=== PATIENT | female | born 1935 | race Hispanic/Latino ===

== ENCOUNTER 2020-06-30 13:29 | Inpatient (IN) | payer MEDICARE ==
[~2020-06-30] VITALS: Ht 162.6 cm; Wt 59.0 kg
[2020-06-30] MEDS ORDERED: SODIUM CHLORIDE 0.9% 1000ML 1,000 ML IV STA ×2 (14:12→14:29)
[2020-06-30] MEDS ORDERED: CEFTRIAXONE SOD 1 GM VIAL IV ONE (14:30)
[2020-06-30] MEDS ORDERED: CEFTRIAXONE SOD 1 GM VIAL ONE (14:50)
[2020-06-30] MEDS ORDERED: SODIUM CHLORIDE 0.9% 1000ML 1,000 ML ONE (14:50)
[2020-06-30] MEDS ORDERED: CEFTRIAXONE SOD 1 GM 50 ML IV ONE (15:00)
[2020-06-30] MEDS ORDERED: ONDANSETRON HCL INJ 2MG/ML 2ML 2 MG/ML VIAL IV PRN (15:30)
[2020-06-30] MEDS ORDERED: ZOLPIDEM TARTRATE 5 MG TAB PO PRN (15:30)
[2020-06-30] MEDS: DEXTROSE 5%/0.45% SOD CHL 1,000 ML IV SCH (17:15)
[2020-06-30 17:27] VITALS: BP 100/43
[2020-06-30 17:36] VITALS: BP 100/43
[2020-06-30] MEDS ORDERED: LOSARTAN POTASS50 MG PO (17:39)
[2020-06-30] MEDS ORDERED: ASPIRIN81 MG PO (17:39)
[2020-06-30] MEDS ORDERED: FUROSEMIDE20 MG PO (17:39)
[2020-06-30] MEDS ORDERED: LEVOTHYROXINE88 MCG PO (17:39)
[2020-06-30 17:44] VITALS: BP 100/43
[2020-06-30 20:00] VITALS: BP 92/41
[2020-06-30 20:13] VITALS: BP 92/41
[2020-06-30] MEDS: PANTOPRAZOLE 40 MG 10ML VIAL IV SCH ×2 (20:40→21:36)
[2020-06-30 23:28] VITALS: BP 82/38
[2020-07-01] VITALS (9 sets, daily range): BP systolic 78–177; BP diastolic 34–87
[2020-07-01] MEDS ORDERED: SODIUM CHLORIDE 0.9% 500ML 500 ML ONE ×2 (00:07→00:34)
[2020-07-01] MEDS ORDERED: SODIUM CHLORIDE 0.9% 500ML 500 ML IV ONE ×3 (00:30→06:30)
[2020-07-01] MEDS: DEXTROSE 5%/0.45% SOD CHL 1,000 ML IV SCH ×2 (01:20→09:54)
[2020-07-01] MEDS ORDERED: SODIUM CHLORIDE 0.9% 1000ML 1,000 ML ONE (06:40)
[2020-07-01 07:44] LABS: BASOPHILS # (AUTO) 0.1 (0.0-0.1); BASOPHILS % 0.8 % (0.0-1.0); EOSINOPHILS % 0.5 % (0.0-6.0); LYMPHOCYTES # (AUTO) 1.3 (1.0-3.2); LYMPHOCYTES % 16.4 % (18.0-39.1); MEAN CORPUSCULAR HEMOGLOBIN 29.8 pg (28-32); MEAN CORPUSCULAR HGB CONC 30.9 g/dL (31-35); MEAN CORPUSCULAR VOLUME 96.4 fL (81-99); MONOCYTES # (AUTO) 0.7 (0.2-0.8); MONOCYTES % 8.6 % (4.4-11.3); NEUTROPHILS # (AUTO) 5.7 (2.1-6.9); NEUTROPHILS % 73.4 % (38.7-80.0); PLATELET COUNT 385 x10e3/uL (140-360); RED BLOOD COUNT 2.25 x10e6/uL (3.6-5.1); RED CELL DISTRIBUTION WIDTH 13.1 % (11.7-14.4)
[2020-07-01 07:56] LABS: HEMATOCRIT 21.7 % (34.2-44.1); HEMOGLOBIN 6.7 g/dL (12.0-16.0)
[2020-07-01] MEDS ORDERED: CEFTRIAXONE SOD 1 GM 50 ML IV SCH (08:00)
[2020-07-01] MEDS ORDERED: SODIUM CHLORIDE 0.9% 250ML 250 ML IV ONE (08:30)
[2020-07-01 08:47] LABS: ALBUMIN 2.1 g/dL (3.5-5.0); ALBUMIN/GLOBULIN RATIO 0.6 (0.8-2.0); ALKALINE PHOSPHATASE 48 IU/L (40-150); ANION GAP 10.5 mmol/L (8-16); BLOOD UREA NITROGEN 18 mg/dL (7-26); BUN/CREATININE RATIO 21 (6-25); CALCIUM 8.1 mg/dL (8.4-10.2); CARBON DIOXIDE 21 mmol/L (22-29); CHLORIDE 104 mmol/L (98-107); CREATININE, SERUM 0.87 mg/dL (0.57-1.11); EST GLOMERULAR FILTRATION RATE > 60 ML/MIN (60-); GLUCOSE 97 mg/dL (74-118); POTASSIUM 3.5 mmol/L (3.5-5.1); SODIUM 132 mmol/L (136-145)
[2020-07-01] MEDS: PANTOPRAZOLE 40 MG 10ML VIAL IV SCH (09:06)
[2020-07-01] MEDS: CEFTRIAXONE SOD 1 GM in SODIUM CHLORIDE 0.9% 50ML 50 ML IV SCH (09:06)
[2020-07-01 09:11] LABS: ALANINE AMINOTRANSFERASE < 6 IU/L (0-55)
[2020-07-01 09:13] LABS: MAGNESIUM 1.8 MG/DL (1.3-2.1); PHOSPHORUS 2.8 MG/DL (2.3-4.7)
[2020-07-01] MEDS: SODIUM CHLORIDE 0.9% 1000ML 1,000 ML IV SCH (10:45)
[2020-07-01 11:37] LABS: CLARITY,URINE CLEAR (CLEAR); COLOR,URINE YELLOW (YELLOW)
[2020-07-01 11:38] LABS: KETONES,URINE NEGATIVE (NEGATIVE); LEUKOCYTE ESTERASE ,URINE NEGATIVE (NEGATIVE); NITRITE,URINE NEGATIVE (NEGATIVE); PROTEIN,URINE DIPSTICK NEGATIVE (NEGATIVE); URINE UROBILINOGEN 0.2 mg/dL (0.2 - 1)
[2020-07-01 11:47] LABS: BACTERIA,URINE FEW /HPF; EPITHELIAL CELLS,URINE RARE /LPF; WBC,URINE (MAN) 0-5 /HPF (0-5)
[2020-07-01] MEDS ORDERED: DOCUSATE SODIUM 100 MG CAP PO PRN (12:45)
[2020-07-01] MEDS ORDERED: ZOLPIDEM TARTRATE 5 MG TAB PO PRN (12:45)
[2020-07-01 13:15] LABS: FERRITIN 177.73 ng/mL (4.63-204.00)
[2020-07-02] VITALS (7 sets, daily range): BP systolic 73–113; BP diastolic 35–52
[2020-07-02] MEDS: SODIUM CHLORIDE 0.9% 1000ML 1,000 ML IV SCH ×2 (05:00→19:30)
[2020-07-02] MEDS: PANTOPRAZOLE 40 MG 10ML VIAL IV SCH ×3 (05:00→20:16)
[2020-07-02] MEDS: LEVOTHYROXINE SODIUM 88 MCG TAB PO SCH (05:00)
[2020-07-02 07:39] LABS: HEMATOCRIT 27.2 % (34.2-44.1); HEMOGLOBIN 8.9 g/dL (12.0-16.0)
[2020-07-02 08:08] LABS: ANION GAP 9.4 mmol/L (8-16); BLOOD UREA NITROGEN 13 mg/dL (7-26); BUN/CREATININE RATIO 17 (6-25); CALCIUM 7.4 mg/dL (8.4-10.2); CARBON DIOXIDE 22 mmol/L (22-29); CHLORIDE 107 mmol/L (98-107); CREATININE, SERUM 0.77 mg/dL (0.57-1.11); EST GLOMERULAR FILTRATION RATE > 60 ML/MIN (60-); GLUCOSE 90 mg/dL (74-118); POTASSIUM 3.4 mmol/L (3.5-5.1); SODIUM 135 mmol/L (136-145)
[2020-07-02] MEDS: CYANOCOBALAMIN INJ 1,000 MCG/ML VIAL IM SCH (09:35)
[2020-07-02] MEDS: IRON SUCROSE 100 MG in SODIUM CHLORIDE 0.9% 100 ML 100 ML IV SCH (09:35)
[2020-07-02] MEDS: CEFTRIAXONE SOD 1 GM in SODIUM CHLORIDE 0.9% 50ML 50 ML IV SCH (10:28)
[2020-07-02] MEDS ORDERED: EPHEDRINE SULFATE INJ 50 MG/ML VIAL ONE (12:25)
[2020-07-02] MEDS ORDERED: PROPOFOL IV EMULSION 10 MG/ML 20 ML VIAL ONE (12:25)
[2020-07-02] MEDS: ACETAMINOPHEN 325 MG TAB PO PRN (22:34)
[2020-07-03] VITALS (7 sets, daily range): BP systolic 90–111; BP diastolic 40–50
[2020-07-03] MEDS: SODIUM CHLORIDE 0.9% 1000ML 1,000 ML IV SCH ×2 (03:03→21:31)
[2020-07-03] MEDS: LEVOTHYROXINE SODIUM 88 MCG TAB PO SCH (05:09)
[2020-07-03 07:36] LABS: BASOPHILS # (AUTO) 0.1 (0.0-0.1); BASOPHILS % 1.2 % (0.0-1.0); EOSINOPHILS # (AUTO) 0.1 (0.0-0.4); EOSINOPHILS % 1.3 % (0.0-6.0); HEMOGLOBIN 8.4 g/dL (12.0-16.0); LYMPHOCYTES # (AUTO) 1.5 (1.0-3.2); LYMPHOCYTES % 21.5 % (18.0-39.1); MEAN CORPUSCULAR HEMOGLOBIN 30.3 pg (28-32); MEAN CORPUSCULAR HGB CONC 32.3 g/dL (31-35); MEAN CORPUSCULAR VOLUME 93.9 fL (81-99); MONOCYTES # (AUTO) 0.6 (0.2-0.8); NEUTROPHILS # (AUTO) 4.7 (2.1-6.9); NEUTROPHILS % 67.7 % (38.7-80.0); PLATELET COUNT 311 x10e3/uL (140-360); RED BLOOD COUNT 2.77 x10e6/uL (3.6-5.1); RED CELL DISTRIBUTION WIDTH 13.9 % (11.7-14.4)
[2020-07-03 07:51] LABS: ANION GAP 7.4 mmol/L (8-16); BLOOD UREA NITROGEN 12 mg/dL (7-26); BUN/CREATININE RATIO 17 (6-25); CALCIUM 7.4 mg/dL (8.4-10.2); CARBON DIOXIDE 22 mmol/L (22-29); CHLORIDE 109 mmol/L (98-107); EST GLOMERULAR FILTRATION RATE > 60 ML/MIN (60-); GLUCOSE 86 mg/dL (74-118); POTASSIUM 3.4 mmol/L (3.5-5.1); SODIUM 135 mmol/L (136-145)
[2020-07-03] MEDS: CEFTRIAXONE SOD 1 GM in SODIUM CHLORIDE 0.9% 50ML 50 ML IV SCH (09:06)
[2020-07-03] MEDS: CYANOCOBALAMIN INJ 1,000 MCG/ML VIAL IM SCH (09:06)
[2020-07-03] MEDS: IRON SUCROSE 100 MG in SODIUM CHLORIDE 0.9% 100 ML 100 ML IV SCH (09:06)
[2020-07-03] MEDS: PANTOPRAZOLE 40 MG 10ML VIAL IV SCH ×2 (09:06→21:23)
[2020-07-03] MEDS: BALSAM PERU/CASTOR OIL 60 GM OINT...G. TP SCH (09:06)
[2020-07-03] MEDS ORDERED: BISACODYL 5 MG TAB EC PO ONE ×2 (15:00→15:30)
[2020-07-03] MEDS ORDERED: CITRATE OF MAGNESIA 300ML BOTTLE PO ONE ×2 (18:00→21:00)
[2020-07-04] VITALS (7 sets, daily range): BP systolic 96–139; BP diastolic 38–79
[2020-07-04] MEDS: LEVOTHYROXINE SODIUM 88 MCG TAB PO SCH (05:05)
[2020-07-04] MEDS: CEFTRIAXONE SOD 1 GM in SODIUM CHLORIDE 0.9% 50ML 50 ML IV SCH (08:19)
[2020-07-04] MEDS: IRON SUCROSE 100 MG in SODIUM CHLORIDE 0.9% 100 ML 100 ML IV SCH (08:20)
[2020-07-04] MEDS: BALSAM PERU/CASTOR OIL 60 GM OINT...G. TP SCH (08:20)
[2020-07-04] MEDS: PANTOPRAZOLE 40 MG 10ML VIAL IV SCH ×2 (08:20→20:06)
[2020-07-04] MEDS: CYANOCOBALAMIN INJ 1,000 MCG/ML VIAL IM SCH (08:20)
[2020-07-04 11:31] LABS: HEMATOCRIT 32.1 % (34.2-44.1)
[2020-07-04] MEDS ORDERED: IOPAMIDOL 370 MG/ML 200 ML INFUS..BTL INJ ONE (18:01)
[2020-07-04] MEDS ORDERED: SODIUM CHLORIDE 0.9% 50ML 0 ML ONE (18:01)
[2020-07-04] MEDS ORDERED: PROPOFOL IV EMULSION 10 MG/ML 20 ML VIAL ONE (19:30)
[2020-07-04] MEDS ORDERED: LIDOCAINE HCL 2% LOCAL INJ 5 ML SDV VIAL INJ ONE (19:30)
[2020-07-05] MEDS: LEVOTHYROXINE SODIUM 88 MCG TAB PO SCH (05:18)
[2020-07-05 05:26] VITALS: BP 131/75
[2020-07-05 08:53] VITALS: BP 131/75
[2020-07-05] MEDS ORDERED: SODIUM CHLORIDE 0.9% 250ML 250 ML IV ONE (09:45)
[2020-07-05] MEDS: BALSAM PERU/CASTOR OIL 60 GM OINT...G. TP SCH (09:53)
[2020-07-05] MEDS: CYANOCOBALAMIN INJ 1,000 MCG/ML VIAL IM SCH (09:53)
[2020-07-05] MEDS: CEFTRIAXONE SOD 1 GM in SODIUM CHLORIDE 0.9% 50ML 50 ML IV SCH (09:53)
[2020-07-05] MEDS: PANTOPRAZOLE 40 MG 10ML VIAL IV SCH ×2 (09:53→21:00)
[2020-07-05] MEDS: IRON SUCROSE 100 MG in SODIUM CHLORIDE 0.9% 100 ML 100 ML IV SCH (09:53)
[2020-07-05 11:41] VITALS: BP 126/57
[2020-07-05 16:28] VITALS: BP 99/51
[2020-07-05] MEDS: SODIUM CHLORIDE 0.9% 1000ML 1,000 ML IV SCH ×2 (17:37)
[2020-07-05 20:11] VITALS: BP 118/46
[2020-07-05] MEDS: ACETAMINOPHEN 325 MG TAB PO PRN (21:49)
[2020-07-05] MEDS: DIPHENHYDRAMINE HCL INJ 50 MG/ML VIAL IV PRN (23:17)
[2020-07-06] VITALS (8 sets, daily range): BP systolic 84–118; BP diastolic 38–61
[2020-07-06] MEDS: LEVOTHYROXINE SODIUM 88 MCG TAB PO SCH (05:35)
[2020-07-06] MEDS: SODIUM CHLORIDE 0.9% 1000ML 1,000 ML IV SCH ×2 (09:58→23:53)
[2020-07-06] MEDS: IRON SUCROSE 100 MG in SODIUM CHLORIDE 0.9% 100 ML 100 ML IV SCH (09:59)
[2020-07-06] MEDS: BALSAM PERU/CASTOR OIL 60 GM OINT...G. TP SCH (09:59)
[2020-07-06] MEDS: CEFTRIAXONE SOD 1 GM in SODIUM CHLORIDE 0.9% 50ML 50 ML IV SCH (09:59)
[2020-07-06] MEDS: PANTOPRAZOLE 40 MG 10ML VIAL IV SCH ×2 (09:59→20:20)
[2020-07-06] MEDS: CYANOCOBALAMIN INJ 1,000 MCG/ML VIAL IM SCH (09:59)
[2020-07-06] MEDS ORDERED: FENTANYL CITRATE/PF 100MCG/2 ML INJ ONE (11:52)
[2020-07-06] MEDS ORDERED: BUPIVACAINE HCL 0.5% INJ 30 ML VIAL INJ ONE (12:39)
[2020-07-06] MEDS ORDERED: LIDOCAINE 1% W/EPINEPHRINE 20 ML VIAL ONE (12:39)
[2020-07-06] MEDS ORDERED: GLYCOPYRROLATE INJ 0.2 MG/ML VIAL ONE (13:46)
[2020-07-06] MEDS ORDERED: ROCURONIUM BROMIDE 10 MG/ML 5ML VIAL IV ONE (13:46)
[2020-07-06] MEDS ORDERED: PROPOFOL IV EMULSION 10 MG/ML 20 ML VIAL ONE (13:46)
[2020-07-06] MEDS ORDERED: SEVOFLURANE INHAL SOLN 250 ML PEN BTL ONE (13:46)
[2020-07-06] MEDS ORDERED: ONDANSETRON HCL INJ 2MG/ML 2ML 2 MG/ML VIAL ONE (13:46)
[2020-07-06] MEDS ORDERED: LIDOCAINE HCL 2% LOCAL INJ 5 ML SDV VIAL INJ ONE (13:46)
[2020-07-06] MEDS ORDERED: DEXAMETHASONE SOD PHOS INJ 4 MG/ML VIAL ONE (13:46)
[2020-07-06] MEDS ORDERED: CEFOXITIN SOD 1 GM VIAL ONE (13:46)
[2020-07-06] MEDS ORDERED: NEOSTIGMINE 1 MG/ML 10ML VIAL ONE (13:46)
[2020-07-06] MEDS ORDERED: PHENYLEPHRINE HCL 1% 10 MG/ML VIAL ONE (13:46)
[2020-07-06] MEDS ORDERED: MORPHINE SULFATE INJ 2 MG/ML SYR IV PRN (14:45)
[2020-07-06] MEDS: DIPHENHYDRAMINE HCL INJ 50 MG/ML VIAL IV PRN (17:06)
[2020-07-06] MEDS ORDERED: SODIUM CHLORIDE 0.9% 50ML 50 ML ONE (20:00)
[2020-07-07] VITALS (10 sets, daily range): BP systolic 83–99; BP diastolic 34–44
[2020-07-07] MEDS: DIPHENHYDRAMINE HCL INJ 50 MG/ML VIAL IV PRN ×4 (01:45→21:33)
[2020-07-07] MEDS: LEVOTHYROXINE SODIUM 88 MCG TAB PO SCH (06:00)
[2020-07-07 07:55] LABS: BASOPHILS % 0.4 % (0.0-1.0); EOSINOPHILS # (AUTO) 0.1 (0.0-0.4); HEMOGLOBIN 8.6 g/dL (12.0-16.0); LYMPHOCYTES # (AUTO) 0.9 (1.0-3.2); LYMPHOCYTES % 9.6 % (18.0-39.1); MEAN CORPUSCULAR HEMOGLOBIN 31.2 pg (28-32); MEAN CORPUSCULAR HGB CONC 31.9 g/dL (31-35); MEAN CORPUSCULAR VOLUME 97.8 fL (81-99); MONOCYTES # (AUTO) 0.4 (0.2-0.8); NEUTROPHILS # (AUTO) 8.1 (2.1-6.9); NEUTROPHILS % 84.6 % (38.7-80.0); PLATELET COUNT 287 x10e3/uL (140-360); RED BLOOD COUNT 2.76 x10e6/uL (3.6-5.1); RED CELL DISTRIBUTION WIDTH 14.6 % (11.7-14.4)
[2020-07-07 08:37] LABS: ANION GAP 10.7 mmol/L (8-16); BLOOD UREA NITROGEN 10 mg/dL (7-26); BUN/CREATININE RATIO 13 (6-25); CALCIUM 7.5 mg/dL (8.4-10.2); CARBON DIOXIDE 15 mmol/L (22-29); CHLORIDE 113 mmol/L (98-107); CREATININE, SERUM 0.78 mg/dL (0.57-1.11); EST GLOMERULAR FILTRATION RATE > 60 ML/MIN (60-); GLUCOSE 111 mg/dL (74-118); POTASSIUM 3.7 mmol/L (3.5-5.1); SODIUM 135 mmol/L (136-145)
[2020-07-07 08:48] LABS: MAGNESIUM 1.9 MG/DL (1.3-2.1); PHOSPHORUS 3.4 MG/DL (2.3-4.7)
[2020-07-07] MEDS: CYANOCOBALAMIN INJ 1,000 MCG/ML VIAL IM SCH (08:50)
[2020-07-07] MEDS: CEFTRIAXONE SOD 1 GM in SODIUM CHLORIDE 0.9% 50ML 50 ML IV SCH (08:50)
[2020-07-07] MEDS: IRON SUCROSE 100 MG in SODIUM CHLORIDE 0.9% 100 ML 100 ML IV SCH (08:50)
[2020-07-07] MEDS: BALSAM PERU/CASTOR OIL 60 GM OINT...G. TP SCH (08:50)
[2020-07-07] MEDS: PANTOPRAZOLE 40 MG 10ML VIAL IV SCH ×2 (08:50→21:22)
[2020-07-07] MEDS ORDERED: SODIUM CHLORIDE 0.9% 1000ML 1,000 ML IV SCH (13:45)
[2020-07-07] MEDS: MIDODRINE 2.5 MG TAB PO SCH (14:07)
[2020-07-07] MEDS: ACETAMINOPHEN 325 MG TAB PO PRN (14:08)
[2020-07-07] MEDS ORDERED: SODIUM CHLORIDE 0.9% 1000ML 500 ML IV ONE (14:30)
[2020-07-08] VITALS (7 sets, daily range): BP systolic 92–114; BP diastolic 37–52
[2020-07-08] MEDS: MIDODRINE 2.5 MG TAB PO SCH ×3 (06:00→17:00)
[2020-07-08] MEDS: LEVOTHYROXINE SODIUM 88 MCG TAB PO SCH (06:00)
[2020-07-08] MEDS: CEFTRIAXONE SOD 1 GM in SODIUM CHLORIDE 0.9% 50ML 50 ML IV SCH (08:37)
[2020-07-08] MEDS: PANTOPRAZOLE 40 MG 10ML VIAL IV SCH ×2 (08:37→21:43)
[2020-07-08] MEDS: CYANOCOBALAMIN INJ 1,000 MCG/ML VIAL IM SCH (08:37)
[2020-07-08] MEDS: BALSAM PERU/CASTOR OIL 60 GM OINT...G. TP SCH (09:23)
[2020-07-08] MEDS: IRON SUCROSE 100 MG in SODIUM CHLORIDE 0.9% 100 ML 100 ML IV SCH (10:08)
[2020-07-08] MEDS: ACETAMINOPHEN 325 MG TAB PO PRN (16:45)
[2020-07-08] MEDS: DIPHENHYDRAMINE HCL INJ 50 MG/ML VIAL IV PRN (22:01)
[2020-07-09] VITALS (8 sets, daily range): BP systolic 97–121; BP diastolic 44–61
[2020-07-09] MEDS: MIDODRINE 2.5 MG TAB PO SCH ×3 (06:21→16:20)
[2020-07-09] MEDS: LEVOTHYROXINE SODIUM 88 MCG TAB PO SCH (06:21)
[2020-07-09 06:57] LABS: BASOPHILS % 0.4 % (0.0-1.0); EOSINOPHILS # (AUTO) 0.2 (0.0-0.4); EOSINOPHILS % 3.2 % (0.0-6.0); HEMATOCRIT 26.2 % (34.2-44.1); HEMOGLOBIN 8.3 g/dL (12.0-16.0); LYMPHOCYTES # (AUTO) 1.2 (1.0-3.2); LYMPHOCYTES % 17.4 % (18.0-39.1); MEAN CORPUSCULAR HEMOGLOBIN 30.4 pg (28-32); MEAN CORPUSCULAR HGB CONC 31.7 g/dL (31-35); MONOCYTES # (AUTO) 0.5 (0.2-0.8); MONOCYTES % 6.5 % (4.4-11.3); NEUTROPHILS % 72.1 % (38.7-80.0); PLATELET COUNT 230 x10e3/uL (140-360); RED BLOOD COUNT 2.73 x10e6/uL (3.6-5.1); RED CELL DISTRIBUTION WIDTH 15.1 % (11.7-14.4)
[2020-07-09 07:53] LABS: ANION GAP 8.8 mmol/L (8-16); BLOOD UREA NITROGEN 11 mg/dL (7-26); BUN/CREATININE RATIO 16 (6-25); CALCIUM 7.7 mg/dL (8.4-10.2); CARBON DIOXIDE 19 mmol/L (22-29); CHLORIDE 111 mmol/L (98-107); EST GLOMERULAR FILTRATION RATE > 60 ML/MIN (60-); GLUCOSE 77 mg/dL (74-118); POTASSIUM 3.8 mmol/L (3.5-5.1); SODIUM 135 mmol/L (136-145)
[2020-07-09] MEDS: CEFTRIAXONE SOD 1 GM in SODIUM CHLORIDE 0.9% 50ML 50 ML IV SCH (09:34)
[2020-07-09] MEDS: CYANOCOBALAMIN INJ 1,000 MCG/ML VIAL IM SCH (09:34)
[2020-07-09] MEDS: PANTOPRAZOLE 40 MG 10ML VIAL IV SCH ×2 (09:35→20:31)
[2020-07-09] MEDS: IRON SUCROSE 100 MG in SODIUM CHLORIDE 0.9% 100 ML 100 ML IV SCH (09:58)
[2020-07-09] MEDS: BALSAM PERU/CASTOR OIL 60 GM OINT...G. TP SCH (09:58)
[2020-07-10] VITALS: BP 117/51
[2020-07-10 04:00] VITALS: BP 123/70
[2020-07-10] MEDS: LEVOTHYROXINE SODIUM 88 MCG TAB PO SCH (05:55)
[2020-07-10] MEDS: MIDODRINE 2.5 MG TAB PO SCH ×3 (06:10→17:26)
[2020-07-10] MEDS ORDERED: PANTOPRAZOLE SO40 MG PO (06:27)
[2020-07-10] MEDS ORDERED: VITAMIN B-121000 MCG PO (06:27)
[2020-07-10] MEDS ORDERED: FERROUS SULFAT325 MG PO (06:27)
[2020-07-10] MEDS ORDERED: MIDODRINE HCL5 MG PO (06:27)
[2020-07-10] MEDS ORDERED: COLACE100 MG PO (06:27)
[2020-07-10 07:58] VITALS: BP 118/59
[2020-07-10 08:00] VITALS: BP 118/59
[2020-07-10] MEDS: IRON SUCROSE 100 MG in SODIUM CHLORIDE 0.9% 100 ML 100 ML IV SCH (09:00)
[2020-07-10] MEDS: PANTOPRAZOLE 40 MG 10ML VIAL IV SCH (09:47)
[2020-07-10] MEDS: BALSAM PERU/CASTOR OIL 60 GM OINT...G. TP SCH (09:47)
[2020-07-10] MEDS: CEFTRIAXONE SOD 1 GM in SODIUM CHLORIDE 0.9% 50ML 50 ML IV SCH (09:47)
[2020-07-10] MEDS: CYANOCOBALAMIN INJ 1,000 MCG/ML VIAL IM SCH (09:47)
[2020-07-10 11:52] VITALS: BP 94/46
[2020-07-10 16:09] VITALS: BP 106/35
== END 2020-07-10 19:31 | DRG 329 ==
LOC: FSED 14:03 → ERHOLD 15:43 → MED/SURG3 17:03 → OBSVTOIN 07-01 12:04
PROVIDERS: ADMIT Internal Medicine; ATTEND Internal Medicine
PROC: 30233N1 Transfusion of Nonautologous Red Blood Cells into Peripheral Vein, Percutaneous Approach (ICD-10-PCS; 2020-07-01)
PROC: 0DD68ZX Extraction of Stomach, Via Natural or Artificial Opening Endoscopic, Diagnostic (ICD-10-PCS; 2020-07-02)
PROC: 0DD78ZX Extraction of Stomach, Pylorus, Via Natural or Artificial Opening Endoscopic, Diagnostic (ICD-10-PCS; 2020-07-02)
PROC: 0DBN8ZZ Excision of Sigmoid Colon, Via Natural or Artificial Opening Endoscopic (ICD-10-PCS; 2020-07-04)
PROC: 0DBP8ZX Excision of Rectum, Via Natural or Artificial Opening Endoscopic, Diagnostic (ICD-10-PCS; 2020-07-04)
PROC: 0D1N474 Bypass Sigmoid Colon to Cutaneous with Autologous Tissue Substitute, Percutaneous Endoscopic Approach (ICD-10-PCS; principal; 2020-07-06 15:30)
DX: C20 Malignant neoplasm of rectum (principal); E43 Unspecified severe protein-calorie malnutrition; R57.1 Hypovolemic shock; C78.7 Secondary malignant neoplasm of liver and intrahepatic bile duct; J90 Pleural effusion, not elsewhere classified; K57.30 Diverticulosis of large intestine without perforation or abscess without bleeding; E83.51 Hypocalcemia; R77.1 Abnormality of globulin; E77.8 Other disorders of glycoprotein metabolism; D50.9 Iron deficiency anemia, unspecified; I10 Essential (primary) hypertension; M19.90 Unspecified osteoarthritis, unspecified site; Z20.822 Contact with and (suspected) exposure to COVID-19; M17.0 Bilateral primary osteoarthritis of knee; E03.9 Hypothyroidism, unspecified; L89.302 Pressure ulcer of unspecified buttock, stage 2; L89.622 Pressure ulcer of left heel, stage 2; K29.70 Gastritis, unspecified, without bleeding
CPT/HCPCS: 36415; 43239; 45380; 71045; 71260; 74177; 80048; 80053; 81001; 81003; 82270; 82378; 82553; 82607; 82728; 82948; 83540; 83735; 83880; 84100; 84132; 84466; 84484; 85014; 85018; 85025; 86850; 86870; 86880; 86900; 86905; 86920; 86922; 88305; 88312; 88331; 93005; 93306; 96360; 96374; 97139; 99001; 99251; 99284; G0378; J0694; J0696; J1100; J1200; J1756; J2001; J2270; J2370; J2405; J2710; J3010; J3420; J7030; J7040; P9016; Q9967; U0002

== ENCOUNTER 2020-08-02 13:30 | Inpatient (IN) | payer MEDICARE ==
[2020-08-01] MEDS: PIPERACILLIN/TAZOBACTAM 3.375 GM in SODIUM CHLORIDE 0.9% 50ML 50 ML IV SCH (23:08)
[~2020-08-02] VITALS: Ht 162.6 cm; Wt 48.5 kg
[~2020-08-02 13:30] MED LIST: ASPIRIN81 MG PO; COLACE100 MG PO; FERROUS SULFAT325 MG PO; FUROSEMIDE20 MG PO; LEVOTHYROXINE88 MCG PO; LOSARTAN POTASS50 MG PO; MIDODRINE HCL5 MG PO; PANTOPRAZOLE SO40 MG PO; VITAMIN B-121000 MCG PO
[2020-08-02] MEDS ORDERED: SODIUM CHLORIDE 0.9% 1000ML 1,000 ML IV STA (14:21)
[2020-08-02 14:32] LABS: BASOPHILS # (AUTO) 0.1 (0.0-0.1); BASOPHILS % 0.6 % (0.0-1.0); EOSINOPHILS % 0.4 % (0.0-6.0); HEMATOCRIT 27.6 % (34.2-44.1); HEMOGLOBIN 9.2 g/dL (12.0-16.0); LYMPHOCYTES # (AUTO) 1.9 (1.0-3.2); LYMPHOCYTES % 17.8 % (18.0-39.1); MEAN CORPUSCULAR HEMOGLOBIN 31.7 pg (28-32); MEAN CORPUSCULAR HGB CONC 33.3 g/dL (31-35); MEAN CORPUSCULAR VOLUME 95.2 fL (81-99); MONOCYTES # (AUTO) 0.9 (0.2-0.8); MONOCYTES % 8.3 % (4.4-11.3); NEUTROPHILS # (AUTO) 7.8 (2.1-6.9); NEUTROPHILS % 72.4 % (38.7-80.0); PLATELET COUNT 264 x10e3/uL (140-360); RED CELL DISTRIBUTION WIDTH 14.7 % (11.7-14.4)
[2020-08-02 14:34] LABS: CLARITY,URINE CLOUDY (CLEAR); COLOR,URINE STRAW (YELLOW); KETONES,URINE NEGATIVE (NEGATIVE); LEUKOCYTE ESTERASE ,URINE MODERATE (NEGATIVE); NITRITE,URINE POSITIVE (NEGATIVE); PROTEIN,URINE DIPSTICK 1+ (NEGATIVE); URINE UROBILINOGEN 1 mg/dL (0.2 - 1)
[2020-08-02 14:34] LABS: INR 1.28; PARTIAL THROMBOPLASTIN TIME 39.3 seconds (23.8-35.5); PROTHROMBIN TIME 16.9 seconds (11.9-14.5)
[2020-08-02 14:42] LABS: ALBUMIN 1.9 g/dL (3.5-5.0); ALBUMIN/GLOBULIN RATIO 0.4 (0.8-2.0); ALKALINE PHOSPHATASE 71 IU/L (40-150); ANION GAP 14.2 mmol/L (8-16); BLOOD UREA NITROGEN 14 mg/dL (7-26); BUN/CREATININE RATIO 20 (6-25); CALCIUM 7.4 mg/dL (8.4-10.2); CARBON DIOXIDE 31 mmol/L (22-29); CHLORIDE 88 mmol/L (98-107); CREATINE KINASE 12 IU/L (29-168); EST GLOMERULAR FILTRATION RATE > 60 ML/MIN (60-); GLUCOSE 84 mg/dL (74-118); LIPASE 10 U/L (8-78); POTASSIUM 3.2 mmol/L (3.5-5.1); SODIUM 130 mmol/L (136-145)
[2020-08-02 14:44] LABS: BACTERIA,URINE MANY /HPF; RBC,URINE 0-5 /HPF (0-5)
[2020-08-02 14:44] LABS: ALANINE AMINOTRANSFERASE < 6 IU/L (0-55)
[2020-08-02] MEDS ORDERED: ONDANSETRON HCL INJ 2MG/ML 2ML 2 MG/ML VIAL IV STA (15:44)
[2020-08-02] MEDS ORDERED: KCL 20MEQ/.9 SOD CHL 1,000 ML IV ONE (15:45)
[2020-08-02] MEDS ORDERED: MORPHINE SULFATE INJ 2 MG/ML SYR IV STA (15:48)
[2020-08-02] MEDS ORDERED: ONDANSETRON HCL INJ 2MG/ML 2ML 2 MG/ML VIAL IV PRN (16:45)
[2020-08-02] MEDS ORDERED: MORPHINE SULFATE INJ 2 MG/ML SYR IV PRN (16:45)
[2020-08-02] MEDS: SODIUM CHLORIDE 0.9% 1000ML 1,000 ML IV SCH (17:44)
[2020-08-02] MEDS ORDERED: SODIUM CHLORIDE 0.9% 1000ML 1,000 ML ONE (18:14)
[2020-08-02] MEDS ORDERED: SODIUM CHLORIDE 0.9% 1000ML 1,000 ML IV SCH (18:15)
[2020-08-02 19:58] VITALS: BP 105/57
[2020-08-02 20:00] VITALS: BP 105/57
[2020-08-02 20:57] VITALS: BP 105/57
[2020-08-02] MEDS ORDERED: PIPERACILLIN/TAZOBACTAM 3.375 GM VIAL ONE (22:20)
[2020-08-02] MEDS ORDERED: SODIUM CHLORIDE 0.9% 50ML 50 ML ONE (22:21)
[2020-08-02] MEDS: MORPHINE SULFATE INJ 4 MG/ML INJ 1ML IV PRN (23:17)
[2020-08-03] VITALS (7 sets, daily range): BP systolic 87–110; BP diastolic 36–46
[2020-08-03] MEDS: PIPERACILLIN/TAZOBACTAM 3.375 GM in SODIUM CHLORIDE 0.9% 50ML 50 ML IV SCH ×5 (00:12→23:21)
[2020-08-03] MEDS: MORPHINE SULFATE INJ 4 MG/ML INJ 1ML IV PRN (00:12)
[2020-08-03] MEDS: SODIUM CHLORIDE 0.9% 1000ML 1,000 ML IV SCH (02:45)
[2020-08-03] MEDS ORDERED: PIPERACILLIN/TAZOBACTAM 3.375 GM VIAL ONE ×4 (05:47→23:14)
[2020-08-03] MEDS ORDERED: DOCUSATE SODIUM 100 MG CAP PO PRN (06:30)
[2020-08-03] MEDS ORDERED: ACETAMINOPHEN 325 MG TAB PO PRN (06:30)
[2020-08-03] MEDS: LEVOTHYROXINE SODIUM 88 MCG TAB PO SCH (06:30)
[2020-08-03] MEDS: PANTOPRAZOLE SOD 40 MG TABEC PO SCH ×2 (06:30→17:29)
[2020-08-03 06:39] LABS: BASOPHILS % 0.3 % (0.0-1.0); EOSINOPHILS # (AUTO) 0.1 (0.0-0.4); EOSINOPHILS % 0.8 % (0.0-6.0); HEMATOCRIT 24.3 % (34.2-44.1); HEMOGLOBIN 7.8 g/dL (12.0-16.0); LYMPHOCYTES # (AUTO) 1.3 (1.0-3.2); MEAN CORPUSCULAR HEMOGLOBIN 31.6 pg (28-32); MEAN CORPUSCULAR HGB CONC 32.1 g/dL (31-35); MEAN CORPUSCULAR VOLUME 98.4 fL (81-99); MONOCYTES # (AUTO) 0.8 (0.2-0.8); MONOCYTES % 6.6 % (4.4-11.3); NEUTROPHILS # (AUTO) 9.4 (2.1-6.9); NEUTROPHILS % 80.8 % (38.7-80.0); PLATELET COUNT 301 x10e3/uL (140-360); RED BLOOD COUNT 2.47 x10e6/uL (3.6-5.1); RED CELL DISTRIBUTION WIDTH 14.9 % (11.7-14.4)
[2020-08-03 07:01] LABS: ALBUMIN 1.7 g/dL (3.5-5.0); ALBUMIN/GLOBULIN RATIO 0.5 (0.8-2.0); ALKALINE PHOSPHATASE 64 IU/L (40-150); ANION GAP 9.9 mmol/L (8-16); BLOOD UREA NITROGEN 11 mg/dL (7-26); BUN/CREATININE RATIO 18 (6-25); CARBON DIOXIDE 29 mmol/L (22-29); CHLORIDE 99 mmol/L (98-107); CREATININE, SERUM 0.62 mg/dL (0.57-1.11); EST GLOMERULAR FILTRATION RATE > 60 ML/MIN (60-); GLUCOSE 64 mg/dL (74-118); SODIUM 135 mmol/L (136-145)
[2020-08-03 07:15] LABS: ALANINE AMINOTRANSFERASE < 6 IU/L (0-55)
[2020-08-03 07:17] LABS: CALCIUM 6.8 mg/dL (8.4-10.2); POTASSIUM 2.9 mmol/L (3.5-5.1)
[2020-08-03] MEDS: LOSARTAN POTASSIUM 100 MG TAB PO SCH ×2 (09:00→11:48)
[2020-08-03] MEDS ORDERED: POTASSIUM CHLORIDE 20 MEQ TAB CR PO STA (11:39)
[2020-08-03] MEDS: CYANOCOBALAMIN 1,000 MCG TAB PO SCH (11:48)
[2020-08-03] MEDS: FERROUS SULFATE 325 MG TAB PO SCH (11:48)
[2020-08-03] MEDS ORDERED: KCL 20 MEQ PACKET/ ORAL SOLN PO ONE (12:30)
[2020-08-03] MEDS ORDERED: SODIUM CHLORIDE 0.9% 50ML 50 ML ONE ×3 (13:11→23:15)
[2020-08-03] MEDS: MIDODRINE 2.5 MG TAB PO SCH (14:31)
[2020-08-03] MEDS ORDERED: SODIUM CHLORIDE 0.9% 250ML 250 ML ONE (23:19)
[2020-08-04] VITALS (7 sets, daily range): BP systolic 93–102; BP diastolic 43–48
[2020-08-04] MEDS: PANTOPRAZOLE SOD 40 MG TABEC PO SCH ×2 (05:27→18:40)
[2020-08-04] MEDS: LEVOTHYROXINE SODIUM 88 MCG TAB PO SCH (05:27)
[2020-08-04] MEDS: PIPERACILLIN/TAZOBACTAM 3.375 GM in SODIUM CHLORIDE 0.9% 50ML 50 ML IV SCH ×4 (05:27→23:02)
[2020-08-04] MEDS: MIDODRINE 2.5 MG TAB PO SCH ×3 (05:28→18:40)
[2020-08-04] MEDS ORDERED: PIPERACILLIN/TAZOBACTAM 3.375 GM VIAL ONE ×4 (05:30→22:12)
[2020-08-04] MEDS ORDERED: SODIUM CHLORIDE 0.9% 50ML 50 ML ONE ×4 (05:30→22:12)
[2020-08-04] MEDS: FERROUS SULFATE 325 MG TAB PO SCH (09:24)
[2020-08-04] MEDS: COLLAGENASE 5 GM TUBE TOP SCH (09:24)
[2020-08-04] MEDS: CYANOCOBALAMIN 1,000 MCG TAB PO SCH (09:24)
[2020-08-04 17:51] LABS: BASOPHILS # (AUTO) 0.1 (0.0-0.1); BASOPHILS % 0.5 % (0.0-1.0); EOSINOPHILS % 0.3 % (0.0-6.0); HEMATOCRIT 25.3 % (34.2-44.1); LYMPHOCYTES # (AUTO) 1.6 (1.0-3.2); LYMPHOCYTES % 10.7 % (18.0-39.1); MEAN CORPUSCULAR HGB CONC 31.6 g/dL (31-35); MEAN CORPUSCULAR VOLUME 98.1 fL (81-99); MONOCYTES # (AUTO) 0.8 (0.2-0.8); MONOCYTES % 5.2 % (4.4-11.3); NEUTROPHILS # (AUTO) 12.2 (2.1-6.9); NEUTROPHILS % 82.7 % (38.7-80.0); PLATELET COUNT 225 x10e3/uL (140-360); RED BLOOD COUNT 2.58 x10e6/uL (3.6-5.1); RED CELL DISTRIBUTION WIDTH 15.2 % (11.7-14.4)
[2020-08-04 18:09] LABS: ANION GAP 9.4 mmol/L (8-16); BLOOD UREA NITROGEN 9 mg/dL (7-26); BUN/CREATININE RATIO 13 (6-25); CALCIUM 7.2 mg/dL (8.4-10.2); CARBON DIOXIDE 24 mmol/L (22-29); CHLORIDE 102 mmol/L (98-107); CREATININE, SERUM 0.69 mg/dL (0.57-1.11); EST GLOMERULAR FILTRATION RATE > 60 ML/MIN (60-); GLUCOSE 121 mg/dL (74-118); POTASSIUM 3.4 mmol/L (3.5-5.1); SODIUM 132 mmol/L (136-145)
[2020-08-04 18:10] LABS: MAGNESIUM 1.8 MG/DL (1.3-2.1)
[2020-08-05] VITALS (7 sets, daily range): BP systolic 98–114; BP diastolic 43–63
[2020-08-05] MEDS ORDERED: SODIUM CHLORIDE 0.9% 50ML 50 ML ONE ×4 (04:49→20:02)
[2020-08-05] MEDS ORDERED: PIPERACILLIN/TAZOBACTAM 3.375 GM VIAL ONE ×4 (04:49→20:02)
[2020-08-05] MEDS: PANTOPRAZOLE SOD 40 MG TABEC PO SCH ×2 (05:18→18:41)
[2020-08-05] MEDS: LEVOTHYROXINE SODIUM 88 MCG TAB PO SCH (05:18)
[2020-08-05] MEDS: PIPERACILLIN/TAZOBACTAM 3.375 GM in SODIUM CHLORIDE 0.9% 50ML 50 ML IV SCH ×4 (05:18→23:30)
[2020-08-05] MEDS: MIDODRINE 2.5 MG TAB PO SCH ×3 (05:18→18:41)
[2020-08-05] MEDS: CYANOCOBALAMIN 1,000 MCG TAB PO SCH (08:47)
[2020-08-05] MEDS: FERROUS SULFATE 325 MG TAB PO SCH (08:47)
[2020-08-05] MEDS: COLLAGENASE 5 GM TUBE TOP SCH (08:47)
[2020-08-05 09:34] LABS: BASOPHILS # (AUTO) 0.1 (0.0-0.1); BASOPHILS % 0.4 % (0.0-1.0); EOSINOPHILS # (AUTO) 0.1 (0.0-0.4); EOSINOPHILS % 0.4 % (0.0-6.0); HEMATOCRIT 23.4 % (34.2-44.1); HEMOGLOBIN 7.4 g/dL (12.0-16.0); LYMPHOCYTES # (AUTO) 1.2 (1.0-3.2); LYMPHOCYTES % 10.6 % (18.0-39.1); MEAN CORPUSCULAR HEMOGLOBIN 31.4 pg (28-32); MEAN CORPUSCULAR HGB CONC 31.6 g/dL (31-35); MEAN CORPUSCULAR VOLUME 99.2 fL (81-99); MONOCYTES # (AUTO) 0.7 (0.2-0.8); MONOCYTES % 5.8 % (4.4-11.3); NEUTROPHILS # (AUTO) 9.2 (2.1-6.9); NEUTROPHILS % 82.3 % (38.7-80.0); PLATELET COUNT 188 x10e3/uL (140-360); RED BLOOD COUNT 2.36 x10e6/uL (3.6-5.1); RED CELL DISTRIBUTION WIDTH 15.2 % (11.7-14.4)
[2020-08-05 09:53] LABS: BLOOD UREA NITROGEN 8 mg/dL (7-26); BUN/CREATININE RATIO 11 (6-25); CALCIUM 7.1 mg/dL (8.4-10.2); CARBON DIOXIDE 23 mmol/L (22-29); CHLORIDE 103 mmol/L (98-107); CREATININE, SERUM 0.71 mg/dL (0.57-1.11); EST GLOMERULAR FILTRATION RATE > 60 ML/MIN (60-); GLUCOSE 81 mg/dL (74-118); SODIUM 135 mmol/L (136-145)
[2020-08-05 10:09] LABS: MAGNESIUM 1.8 MG/DL (1.3-2.1); PHOSPHORUS 2.1 MG/DL (2.3-4.7)
[2020-08-06] VITALS (7 sets, daily range): BP systolic 99–121; BP diastolic 47–56
[2020-08-06] MEDS ORDERED: PIPERACILLIN/TAZOBACTAM 3.375 GM VIAL ONE ×3 (02:42→18:12)
[2020-08-06] MEDS ORDERED: SODIUM CHLORIDE 0.9% 50ML 50 ML ONE ×3 (02:43→18:13)
[2020-08-06] MEDS ORDERED: SODIUM CHLORIDE 0.9% 250ML 250 ML ONE (04:30)
[2020-08-06] MEDS: MIDODRINE 2.5 MG TAB PO SCH ×3 (05:39→18:07)
[2020-08-06] MEDS: PIPERACILLIN/TAZOBACTAM 3.375 GM in SODIUM CHLORIDE 0.9% 50ML 50 ML IV SCH ×3 (05:39→18:15)
[2020-08-06] MEDS: PANTOPRAZOLE SOD 40 MG TABEC PO SCH ×2 (05:40→18:15)
[2020-08-06] MEDS: LEVOTHYROXINE SODIUM 88 MCG TAB PO SCH (05:40)
[2020-08-06] MEDS ORDERED: CIPRO250 MG PO (06:23)
[2020-08-06 08:36] LABS: BASOPHILS % 0.4 % (0.0-1.0); EOSINOPHILS # (AUTO) 0.1 (0.0-0.4); EOSINOPHILS % 0.4 % (0.0-6.0); HEMOGLOBIN 7.2 g/dL (12.0-16.0); LYMPHOCYTES # (AUTO) 1.4 (1.0-3.2); LYMPHOCYTES % 12.9 % (18.0-39.1); MEAN CORPUSCULAR HEMOGLOBIN 30.9 pg (28-32); MEAN CORPUSCULAR HGB CONC 31.9 g/dL (31-35); MONOCYTES # (AUTO) 0.7 (0.2-0.8); MONOCYTES % 6.1 % (4.4-11.3); NEUTROPHILS # (AUTO) 8.9 (2.1-6.9); NEUTROPHILS % 79.6 % (38.7-80.0); PLATELET COUNT 213 x10e3/uL (140-360); RED BLOOD COUNT 2.33 x10e6/uL (3.6-5.1); RED CELL DISTRIBUTION WIDTH 15.2 % (11.7-14.4)
[2020-08-06 08:39] LABS: HEMATOCRIT 22.6 % (34.2-44.1)
[2020-08-06 09:15] LABS: ANION GAP 10.3 mmol/L (8-16); BLOOD UREA NITROGEN 8 mg/dL (7-26); BUN/CREATININE RATIO 12 (6-25); CALCIUM 7.2 mg/dL (8.4-10.2); CARBON DIOXIDE 25 mmol/L (22-29); CHLORIDE 101 mmol/L (98-107); CREATININE, SERUM 0.66 mg/dL (0.57-1.11); EST GLOMERULAR FILTRATION RATE > 60 ML/MIN (60-); GLUCOSE 66 mg/dL (74-118); POTASSIUM 3.3 mmol/L (3.5-5.1); SODIUM 133 mmol/L (136-145)
[2020-08-06] MEDS: FERROUS SULFATE 325 MG TAB PO SCH (13:00)
[2020-08-06] MEDS ORDERED: ONDANSETRON HCL 4 MG ORAL DISINTEGRATING TAB PO PRN (13:00)
[2020-08-06] MEDS: CYANOCOBALAMIN 1,000 MCG TAB PO SCH (13:00)
[2020-08-06] MEDS: COLLAGENASE 5 GM TUBE TOP SCH (18:46)
[2020-08-06] MEDS ORDERED: POTASSIUM CHLORIDE 20 MEQ TAB CR PO STA (20:33)
== END 2020-08-06 22:56 | disposition home health service (06) | DRG 698 ==
LOC: ER 13:45 → ERHOLD 16:38 → MED/SURG3 18:37
PROVIDERS: ADMIT Internal Medicine; ATTEND Internal Medicine
PROC: 02HV33Z Insertion of Infusion Device into Superior Vena Cava, Percutaneous Approach (ICD-10-PCS; principal; 2020-08-02)
DX: T83.592A Infection and inflammatory reaction due to indwelling ureteral stent, initial encounter (principal); E43 Unspecified severe protein-calorie malnutrition; G93.41 Metabolic encephalopathy; N39.0 Urinary tract infection, site not specified; E87.1 Hypo-osmolality and hyponatremia; C20 Malignant neoplasm of rectum; Z68.1 Body mass index [BMI] 19.9 or less, adult; L89.102 Pressure ulcer of unspecified part of back, stage 2; L89.152 Pressure ulcer of sacral region, stage 2; L89.629 Pressure ulcer of left heel, unspecified stage; E03.9 Hypothyroidism, unspecified; R63.0 Anorexia; E87.6 Hypokalemia; B96.89 Other specified bacterial agents as the cause of diseases classified elsewhere
CPT/HCPCS: 36415; 36569; 70450; 71045; 80048; 80053; 81001; 82550; 82553; 83690; 83735; 84100; 84484; 85025; 85610; 85730; 87040; 87086; 87186; 93005; 96361; 97139; 99251; 99284; J2270; J2405; J2543; J7030; J7050; U0002

== ENCOUNTER 2020-08-14 18:57 | Emergency (ER) | payer MEDICARE ==
[~2020-08-14] VITALS: Ht 162.6 cm; Wt 48.5 kg
[~2020-08-14 18:57] MED LIST changes: +CIPRO250 MG PO
[2020-08-14] MEDS ORDERED: SODIUM CHLORIDE 0.9% 1000ML 1,000 ML ONE (19:41)
[2020-08-14 19:50] LABS: BASOPHILS # (AUTO) 0.1 (0.0-0.1); BASOPHILS % 0.4 % (0.0-1.0); EOSINOPHILS # (AUTO) 0.1 (0.0-0.4); EOSINOPHILS % 0.5 % (0.0-6.0); HEMOGLOBIN 7.7 g/dL (12.0-16.0); LYMPHOCYTES # (AUTO) 0.8 (1.0-3.2); LYMPHOCYTES % 6.3 % (18.0-39.1); MEAN CORPUSCULAR HEMOGLOBIN 31.6 pg (28-32); MEAN CORPUSCULAR HGB CONC 32.1 g/dL (31-35); MEAN CORPUSCULAR VOLUME 98.4 fL (81-99); MONOCYTES # (AUTO) 0.6 (0.2-0.8); MONOCYTES % 4.6 % (4.4-11.3); NEUTROPHILS # (AUTO) 11.6 (2.1-6.9); NEUTROPHILS % 87.6 % (38.7-80.0); PLATELET COUNT 206 x10e3/uL (140-360); RED BLOOD COUNT 2.44 x10e6/uL (3.6-5.1); RED CELL DISTRIBUTION WIDTH 15.9 % (11.7-14.4)
[2020-08-14] MEDS ORDERED: SODIUM CHLORIDE 0.9% 1000ML 1,000 ML IV ONE (20:00)
[2020-08-14 20:09] LABS: ALBUMIN 1.8 g/dL (3.5-5.0); ALBUMIN/GLOBULIN RATIO 0.4 (0.8-2.0); ALKALINE PHOSPHATASE 87 IU/L (40-150); ANION GAP 11.4 mmol/L (8-16); BLOOD UREA NITROGEN 8 mg/dL (7-26); BUN/CREATININE RATIO 11 (6-25); CALCIUM 7.4 mg/dL (8.4-10.2); CARBON DIOXIDE 23 mmol/L (22-29); CHLORIDE 101 mmol/L (98-107); CREATININE, SERUM 0.71 mg/dL (0.57-1.11); EST GLOMERULAR FILTRATION RATE > 60 ML/MIN (60-); GLUCOSE 97 mg/dL (74-118); POTASSIUM 3.4 mmol/L (3.5-5.1); SODIUM 132 mmol/L (136-145)
[2020-08-14 20:10] LABS: ALANINE AMINOTRANSFERASE < 6 IU/L (0-55)
[2020-08-14 22:44] LABS: CLARITY,URINE SL CLOUDY (CLEAR); COLOR,URINE YELLOW (YELLOW); KETONES,URINE TRACE (NEGATIVE); LEUKOCYTE ESTERASE ,URINE TRACE (NEGATIVE); NITRITE,URINE NEGATIVE (NEGATIVE); PROTEIN,URINE DIPSTICK 1+ (NEGATIVE); URINE UROBILINOGEN 0.2 mg/dL (0.2 - 1)
[2020-08-14 22:51] LABS: AMORPHOUS SEDIMENT,URINE FEW (FEW); BACTERIA,URINE FEW /HPF; EPITHELIAL CELLS,URINE FEW /LPF; YEAST,URINE FEW
[2020-08-14] MEDS ORDERED: FLUCONAZOLE100 MG PO (22:58)
[2020-08-14] MEDS ORDERED: CEPHALEXIN500 MG PO (22:59)
[2020-08-14 23:21] VITALS: BP 102/50
== END 2020-08-15 00:21 | disposition home or self-care (01) ==
LOC: ER 20:42
DX: N39.0 Urinary tract infection, site not specified (principal); I10 Essential (primary) hypertension; R94.31 Abnormal electrocardiogram [ECG] [EKG]; Z85.048 Personal history of other malignant neoplasm of rectum, rectosigmoid junction, and anus; Z93.3 Colostomy status
CPT/HCPCS: 36415; 71045; 80053; 81001; 83605; 83880; 84484; 85025; 93005; 99284; J7030

== ENCOUNTER 2020-10-01 00:40 | Inpatient (IN) | payer MEDICARE ==
[2020-10-01] VITALS (8 sets, daily range): BP systolic 94–117; BP diastolic 44–72
[~2020-10-01] VITALS: Ht 162.6 cm; Wt 48.5 kg
[~2020-10-01 00:40] MED LIST changes: +CEPHALEXIN500 MG PO; +FLUCONAZOLE100 MG PO
[2020-10-01] MEDS ORDERED: SODIUM CHLORIDE 0.9% 1000ML 1,000 ML IV ONE (01:15)
[2020-10-01 01:34] LABS: BASOPHILS % 0.3 % (0.0-1.0); EOSINOPHILS % 0.1 % (0.0-6.0); HEMATOCRIT 27.4 % (34.2-44.1); HEMOGLOBIN 8.8 g/dL (12.0-16.0); LYMPHOCYTES # (AUTO) 3.2 (1.0-3.2); LYMPHOCYTES % 28.6 % (18.0-39.1); MEAN CORPUSCULAR HEMOGLOBIN 34.1 pg (28-32); MEAN CORPUSCULAR HGB CONC 32.1 g/dL (31-35); MEAN CORPUSCULAR VOLUME 106.2 fL (81-99); MONOCYTES # (AUTO) 0.6 (0.2-0.8); MONOCYTES % 5.1 % (4.4-11.3); NEUTROPHILS # (AUTO) 7.3 (2.1-6.9); NEUTROPHILS % 65.5 % (38.7-80.0); PLATELET COUNT 231 x10e3/uL (140-360); RED BLOOD COUNT 2.58 x10e6/uL (3.6-5.1); RED CELL DISTRIBUTION WIDTH 15.9 % (11.7-14.4)
[2020-10-01 01:53] LABS: ALBUMIN 2.2 g/dL (3.5-5.0); ALBUMIN/GLOBULIN RATIO 0.5 (0.8-2.0); ANION GAP 19.3 mmol/L (8-16); CALCIUM 8.4 mg/dL (8.4-10.2); CREATININE, SERUM 1.96 mg/dL (0.57-1.11); POTASSIUM 4.3 mmol/L (3.5-5.1)
[2020-10-01] MEDS ORDERED: CEFTRIAXONE SOD 1 GM VIAL IV SCH (03:45)
[2020-10-01] MEDS ORDERED: ONDANSETRON HCL INJ 2MG/ML 2ML 2 MG/ML VIAL IV PRN ×2 (04:00→09:00)
[2020-10-01] MEDS: SODIUM CHLORIDE 0.9% 1000ML 1,000 ML IV SCH ×2 (06:11→19:49)
[2020-10-01] MEDS: CEFTRIAXONE SOD 1 GM in SODIUM CHLORIDE 0.9% 50ML 50 ML IV SCH (06:11)
[2020-10-01] MEDS ORDERED: HYDRALAZINE HCL 20 MG/ML VIAL IV PRN (09:00)
[2020-10-01] MEDS ORDERED: ACETAMINOPHEN 325 MG SUPP PR PRN (09:00)
[2020-10-01 09:21] LABS: CREATINE KINASE MB 2.7 ng/mL (0-5.0)
[2020-10-01] MEDS ORDERED: BACTRIM DS TAB1 EACH PO (11:31)
[2020-10-01] MEDS ORDERED: ULTRAM50 MG PO (11:31)
[2020-10-01] MEDS ORDERED: MEGESTROL625 MG/5 M PO (11:31)
[2020-10-01] MEDS: FAMOTIDINE 20 MG/2 ML VIAL IV SCH ×2 (12:43→17:13)
[2020-10-01] MEDS ORDERED: DOCUSATE SODIUM 100 MG CAP PO PRN (14:45)
[2020-10-01] MEDS: PANTOPRAZOLE SOD 40 MG TABEC PO SCH (15:23)
[2020-10-01] MEDS: MIDODRINE HCL 5 MG TABLET PO SCH (17:13)
[2020-10-01 18:29] LABS: CREATINE KINASE MB 2.9 ng/mL (0-5.0)
[2020-10-01 18:50] LABS: COLOR,URINE YELLOW (YELLOW)
[2020-10-01 18:51] LABS: CLARITY,URINE SL CLOUDY (CLEAR); LEUKOCYTE ESTERASE ,URINE NEGATIVE (NEGATIVE); NITRITE,URINE NEGATIVE (NEGATIVE); PROTEIN,URINE DIPSTICK 1+ (NEGATIVE)
[2020-10-01 18:52] LABS: KETONES,URINE NEGATIVE (NEGATIVE); URINE UROBILINOGEN 0.2 mg/dL (0.2 - 1)
[2020-10-01 18:58] LABS: RBC,URINE 0-5 /HPF (0-5); WBC,URINE (MAN) 0-5 /HPF (0-5)
[2020-10-01 18:59] LABS: AMORPHOUS SEDIMENT,URINE MODERATE (FEW); BACTERIA,URINE FEW /HPF; EPITHELIAL CELLS,URINE FEW /LPF
[2020-10-01 20:02] LABS: INR 1.21
[2020-10-01 20:09] LABS: IRON 50 ug/dL (50-170); TRANSFERRIN < 70 mg/dL (180-382)
[2020-10-02] VITALS (8 sets, daily range): BP systolic 85–104; BP diastolic 47–92
[2020-10-02] MEDS: PANTOPRAZOLE SOD 40 MG TABEC PO SCH ×2 (02:31→14:45)
[2020-10-02] MEDS: CEFTRIAXONE SOD 1 GM in SODIUM CHLORIDE 0.9% 50ML 50 ML IV SCH (04:20)
[2020-10-02 04:55] LABS: BASOPHILS % 0.4 % (0.0-1.0); HEMATOCRIT 27.2 % (34.2-44.1); HEMOGLOBIN 8.3 g/dL (12.0-16.0); LYMPHOCYTES # (AUTO) 1.1 (1.0-3.2); LYMPHOCYTES % 9.8 % (18.0-39.1); MEAN CORPUSCULAR HEMOGLOBIN 33.9 pg (28-32); MEAN CORPUSCULAR HGB CONC 30.5 g/dL (31-35); MONOCYTES # (AUTO) 0.3 (0.2-0.8); MONOCYTES % 2.7 % (4.4-11.3); NEUTROPHILS # (AUTO) 9.5 (2.1-6.9); NEUTROPHILS % 86.6 % (38.7-80.0); PLATELET COUNT 158 x10e3/uL (140-360); RED BLOOD COUNT 2.45 x10e6/uL (3.6-5.1); RED CELL DISTRIBUTION WIDTH 16.1 % (11.7-14.4)
[2020-10-02] MEDS: LEVOTHYROXINE SODIUM 88 MCG TAB PO SCH (05:01)
[2020-10-02 05:24] LABS: ALBUMIN 2.1 g/dL (3.5-5.0); ALBUMIN/GLOBULIN RATIO 0.5 (0.8-2.0); ANION GAP 18.7 mmol/L (8-16); CALCIUM 8.2 mg/dL (8.4-10.2); CREATININE, SERUM 1.75 mg/dL (0.57-1.11); POTASSIUM 3.7 mmol/L (3.5-5.1)
[2020-10-02 06:29] LABS: ANISOCYTOSIS SLIGHT; LYMPHOCYTES % (MANUAL) 8 % (19-48); MONOCYTES % (MANUAL) 1 % (3.4-9.0); NEUTROPHILS % (MANUAL) 91 % (40-74); PLATELET ESTIMATE ADEQUATE; PLATELET MORPHOLOGY COMMENT NORMAL; TEAR DROP CELLS FEW
[2020-10-02 06:30] LABS: RBC MORPHOLOGY COMMENT ABNORMAL
[2020-10-02] MEDS: SODIUM CHLORIDE 0.9% 1000ML 1,000 ML IV SCH ×2 (06:43→20:00)
[2020-10-02] MEDS: FAMOTIDINE 20 MG/2 ML VIAL IV SCH ×2 (09:00→17:16)
[2020-10-02] MEDS: MEGACE 400MG/ 10ML CUP PO SCH (09:00)
[2020-10-02] MEDS: FERROUS SULFATE 325 MG TAB PO SCH (09:00)
[2020-10-02] MEDS ORDERED: MEGESTROL ACETATE 800 MG PO SCH (09:00)
[2020-10-02] MEDS: MULTIVITAMINS/MINERALS TAB PO SCH (09:00)
[2020-10-02] MEDS: MIDODRINE HCL 5 MG TABLET PO SCH ×2 (09:00→17:00)
[2020-10-02 10:03] LABS: MAGNESIUM 1.9 MG/DL (1.3-2.1)
[2020-10-02] MEDS ORDERED: LIDOCAINE HCL 2% LOCAL INJ 5 ML SDV VIAL INJ ONE (12:16)
[2020-10-02] MEDS ORDERED: PROPOFOL IV EMULSION 10 MG/ML 20 ML VIAL ONE (12:16)
[2020-10-03] VITALS (8 sets, daily range): BP systolic 92–101; BP diastolic 50–71
[2020-10-03] MEDS: PANTOPRAZOLE SOD 40 MG TABEC PO SCH ×2 (02:45→15:45)
[2020-10-03] MEDS: LEVOTHYROXINE SODIUM 88 MCG TAB PO SCH (05:04)
[2020-10-03] MEDS: CEFTRIAXONE SOD 1 GM in SODIUM CHLORIDE 0.9% 50ML 50 ML IV SCH (05:04)
[2020-10-03] MEDS: FERROUS SULFATE 325 MG TAB PO SCH (07:25)
[2020-10-03] MEDS: MULTIVITAMINS/MINERALS TAB PO SCH (07:25)
[2020-10-03] MEDS: MEGACE 400MG/ 10ML CUP PO SCH (07:25)
[2020-10-03] MEDS: FAMOTIDINE 20 MG/2 ML VIAL IV SCH ×2 (08:19→15:59)
[2020-10-03] MEDS: MIDODRINE HCL 5 MG TABLET PO SCH ×2 (08:44→15:59)
[2020-10-03 09:55] LABS: ANION GAP 16.4 mmol/L (8-16); CALCIUM 8.2 mg/dL (8.4-10.2); CREATININE, SERUM 1.9 mg/dL (0.57-1.11); MAGNESIUM 1.9 MG/DL (1.3-2.1); PHOSPHORUS 3.8 MG/DL (2.3-4.7); POTASSIUM 3.4 mmol/L (3.5-5.1)
[2020-10-03] MEDS ORDERED: KEFLEX125 MG/5 M PO (10:48)
[2020-10-03] MEDS: COLLAGENASE 5 GM TUBE TOP SCH (14:09)
[2020-10-03] MEDS ORDERED: DEXTROSE 50% SYRINGE 50 ML IV ONE (15:15)
[2020-10-04] VITALS: BP 110/71
[2020-10-04] MEDS: CEFTRIAXONE SOD 1 GM in SODIUM CHLORIDE 0.9% 50ML 50 ML IV SCH (03:15)
[2020-10-04] MEDS: PANTOPRAZOLE SOD 40 MG TABEC PO SCH (03:15)
[2020-10-04] MEDS: SODIUM CHLORIDE 0.9% 1000ML 1,000 ML IV SCH ×2 (03:15→08:20)
[2020-10-04 04:00] VITALS: BP 90/48
[2020-10-04] MEDS: LEVOTHYROXINE SODIUM 88 MCG TAB PO SCH (05:19)
[2020-10-04] MEDS: MEGACE 400MG/ 10ML CUP PO SCH (08:20)
[2020-10-04] MEDS: FERROUS SULFATE 325 MG TAB PO SCH (08:20)
[2020-10-04] MEDS: MIDODRINE HCL 5 MG TABLET PO SCH (08:20)
[2020-10-04] MEDS: FAMOTIDINE 20 MG/2 ML VIAL IV SCH (08:20)
[2020-10-04] MEDS: MULTIVITAMINS/MINERALS TAB PO SCH (08:21)
[2020-10-04 08:35] VITALS: BP 87/57
[2020-10-04 09:10] VITALS: BP 87/57
[2020-10-04] MEDS: COLLAGENASE 5 GM TUBE TOP SCH (09:23)
[2020-10-04 12:35] VITALS: BP 105/61
[2020-10-04 16:45] VITALS: BP 93/59
== END 2020-10-04 16:40 | disposition home or self-care (01) | DRG 682 ==
LOC: ER 00:46 → ERHOLD 04:23 → MED/SURG2 04:35
PROVIDERS: ADMIT Internal Medicine; ATTEND Internal Medicine
PROC: 0DH68UZ Insertion of Feeding Device into Stomach, Via Natural or Artificial Opening Endoscopic (ICD-10-PCS; principal; 2020-10-02 12:00)
DX: N17.9 Acute kidney failure, unspecified (principal); L89.153 Pressure ulcer of sacral region, stage 3; E43 Unspecified severe protein-calorie malnutrition; Z68.1 Body mass index [BMI] 19.9 or less, adult; E87.2 Acidosis; R64 Cachexia; C20 Malignant neoplasm of rectum; C78.7 Secondary malignant neoplasm of liver and intrahepatic bile duct; C79.51 Secondary malignant neoplasm of bone; R62.7 Adult failure to thrive; Z85.048 Personal history of other malignant neoplasm of rectum, rectosigmoid junction, and anus; Z96.641 Presence of right artificial hip joint; E88.09 Other disorders of plasma-protein metabolism, not elsewhere classified; R09.02 Hypoxemia; Z74.01 Bed confinement status; D50.9 Iron deficiency anemia, unspecified; D63.8 Anemia in other chronic diseases classified elsewhere; K76.89 Other specified diseases of liver; E86.0 Dehydration; R06.89 Other abnormalities of breathing; L89.620 Pressure ulcer of left heel, unstageable; L89.610 Pressure ulcer of right heel, unstageable; L89.312 Pressure ulcer of right buttock, stage 2
CPT/HCPCS: 36415; 43246; 71045; 80048; 80053; 81001; 82550; 82553; 82607; 82746; 82948; 83540; 83605; 83735; 84100; 84466; 84484; 85025; 85045; 85610; 87040; 93005; 97139; 99284; J0696; J2001; J7030; J7799; U0002